=== PATIENT | male | born 1950 | race Caucasian/White ===

== ENCOUNTER → 2016-09-28 | Outpatient (CLI) | payer MEDICARE ==
[~2016-09-28] MED LIST: CIALIS10 MG; MELOXICAM15 MG; PRAVASTATIN SOD80 MG PO; SYNTHROID 0.00.05 MG PO
--- NOTE | 2016-09-28 09:53 | RADIOLOGY REPORT PS360 ---
US LIVER (ABD LTD) CLINICAL INDICATION: ELEVATED LIVER ENZYMES ORDERING PHYSICIAN: Darell Reyes MD PATIENT AGE: 66 years COMPARISON: None FINDINGS: Small septated cyst is present in the left hepatic lobe at 2.5 x 0.9 cm. No other liver lesions are evident. Homogeneous echogenicity noted within the hepatic parenchyma. No intra or extrahepatic biliary dilatation. Portal vein is normal in size at 11 mm. There is appropriate direction of blood flow within the portal vein. There is increased echogenicity along the anterior aspect of the liver probably related to intraperitoneal fat throughout homogeneous in nature. Could be confirmed with CT if clinically desired There is a small amount sludge within the gallbladder. No gallstones, gallbladder wall thickening, pericholecystic fluid, or biliary dilatation is evident. Right kidney has unremarkable appearance. IMPRESSION: 1. Small septated hepatic cyst at 2.5 x 0.9 cm. 2. Probable intraperitoneal fat anterior to the liver which could be confirmed with CT if clinically warranted. 3. Small amount gallbladder sludge.
== END ==
LOC: RAD 09:02
DX: R94.5 Abnormal results of liver function studies (principal)